=== PATIENT | female | born 1950 | race Caucasian/White ===

== ENCOUNTER 2019-11-17 08:23 | Outpatient (CLI) | payer MEDICARE, SELFPAY ==
[2019-11-17 08:38] LABS: Basophils Absolute Auto 0.11 K/mm3 (0.00-0.10); Basophils Percent Auto 1.8 % (0.0-1.0); Eosinophils Absolute Auto 0.55 K/mm3 (0.02-0.50); Eosinophils Percent Auto 9.1 % (1.0-6.0); Hematocrit 41.1 % (35.0-42.0); Hemoglobin 13.5 g/dL (11.7-13.8); Immature Granulocyte Absolute 0.01 K/mm3 (0.00-0.00); Immature Granulocyte Percent A 0.2 % (0.0-0.0); Immature Platelet Fraction Pct 6.8 % (1.0-7.0); Lymphocytes Absolute Auto 1.85 K/mm3 (1.10-4.50); Lymphocytes Percent Auto 30.6 % (18.0-42.0); Mean Corpuscular HGB Conc 32.8 g/dL (32.0-36.0); Mean Corpuscular Hemoglobin 30.3 pg (27.0-31.0); Mean Corpuscular Volume 92.2 fL (78.0-102.0); Mean Platelet Volume 11.8 fl (9.2-11.8); Monocytes Absolute Auto 0.55 K/mm3 (0.10-0.90); Monocytes Percent Auto 9.1 % (2.0-11.0); Neutrophils Percent Auto 49.2 % (50.0-70.0); Platelet Count Result 134 K/mm3 (150-420); Red Blood Count 4.46 M/mm3 (4.20-5.40); Red Cell Distribution Width 12.6 % (11.6-14.4)
[2019-11-17 08:39] LABS: Add Urine Microscopic? YES; Appearance Urine Clear (Clear); Bilirubin Urine Negative (Negative); Blood Urine 2+ (Negative); Color Urine Yellow (Yellow); Glucose Urine UA Negative (Negative); Ketones Urine Negative (Negative); Leukocyte Esterase Ur Negative LEU/UL (Negative); Nitrate Urine Negative (Negative); Protein Urine Negative (Negative); Specific Grav Ur 1.025 (1.010-1.020); Urobilinogen Urine 0.2 mg/dL (0.2-1.0)
[2019-11-17 08:58] LABS: Bacteria Urine 1+ /hpf; Squamous Epithelial Cell Urine Few /hpf (Few); WBC Urine 0-3 /hpf (0-3)
[2019-11-17 08:59] LABS: Mucus Urine Moderate /lpf
[2019-11-17 09:41] LABS: Alanine Aminotransferase 35 U/L (14-59); Albumin Level 3.6 g/dL (3.4-5.0); Alkaline Phosphatase 94 U/L (46-116); Anion Gap 13.3 mmol/L (7-16); Aspartate Amino Transferase 28 U/L (15-37); Bilirubin,Total 0.5 mg/dL (0.00-1.00); Blood Urea Nitrogen 18 mg/dL (7-18); Carbon Dioxide 27 mmol/L (21-32); Chloride 109 mmol/L (98-108); Cholesterol 125 mg/dL (0-200); Creatine Kinase 90 U/L (26-192); Estimated Glomerular Filt Rate > 60; Free T4 Free Thyroxine 1.12 ng/dL (0.76-1.46); Glucose 92 mg/dL (70-99); HDL Direct 56 mg/dL (40-60); LDL Cholesterol Calculated 58 mg/dL (<130); Osmolality Calculated 301 mOsm/kg (285-295); Potassium 4.3 mmol/L (3.5-5.1); Sodium 145 mmol/L (136-145); Thyroid Stimulating Hormone 1.72 uIU/mL (0.36-3.74); Total Protein 6.6 g/dL (6.4-8.2); Triglycerides 57 mg/dL (0-150)
[2019-11-21 10:27] LABS: Vitamin D 25 Hydroxy 17 ng/mL (30-100)
== END 2019-11-17 08:24 | disposition home or self-care (01) ==
PROVIDERS: PCP Internal Medicine; Visit Provider Internal Medicine
DX: D69.6 Thrombocytopenia, unspecified (principal); E03.9 Hypothyroidism, unspecified; M81.0 Age-related osteoporosis without current pathological fracture; E78.5 Hyperlipidemia, unspecified; Z00.00 Encounter for general adult medical examination without abnormal findings
CPT/HCPCS: 36415; 80053; 80061; 81001; 82306; 82550; 84439; 84443; 85025; 85055

== ENCOUNTER 2020-11-17 07:51 | Outpatient (CLI) | payer MEDICARE, SELFPAY ==
--- NOTE | ~2020-11-17 | US_ITS ---
EXAMINATION: US right upper quadrant DATE: 11/17/2020 08:27 INDICATION: Nausea. Diarrhea. TECHNIQUE: Multiple grayscale and Doppler ultrasound images of the abdomen were obtained. COMPARISON: None FINDINGS: The visualized portions of the head, body, and tail of the pancreas are normal. There are c ysts in the liver measuring up to 14 mm. No liver surface nodularity. There is normal flow in main po rtal vein. The gallbladder is absent. The common duct is dilated to 12 mm. IMPRESSION: 1. Mildly dilated common duct status post cholecystectomy, likely not clinically significant given th e normal liver function tests. Reviewed, dictated and finalized at location B. IMPRESSION: 1. Mildly dilated common duct status post cholecystectomy, likely not clinicall y significant given the normal liver function tests.
--- NOTE | ~2020-11-17 | US_ITS ---
EXAMINATION: US carotid duplex BI DATE: 11/17/2020 08:27 INDICATION: Carotid stenosis. TECHNIQUE: Grayscale, color Doppler, and pulsed Doppler images of the cervical carotid arteries were obtained. The degree of vessel stenosis is placed in one of the following categories: normal, <50%, 5 0-69%, >=70% but less than near-occlusion, near-occlusion, or total occlusion. Note that percent sten osis relative to normal distal artery lumen diameter is indirectly measured from velocity measurement s as described by Fabio, et al. Radiology 2003; 229:340-346. COMPARISON: Ultrasound 01/04/2009 FINDINGS: RIGHT: The right common carotid artery (CCA) peak systolic velocity (PSV) is 121 cm/s. The right internal ca rotid artery (ICA) PSV is 92 cm/s. The right ICA end-diastolic velocity (EDV) is 19 cm/s. The right I CA/CCA PSV ratio is 0.8. Grayscale and color Doppler images yield an estimate of <50% diameter reduct ion from plaque in the ICA. There is antegrade flow in the right vertebral artery. LEFT: The left CCA PSV is 134 cm/s. The left ICA PSV is 104 cm/s. The left ICA EDV is 29 cm/s. The left ICA /CCA PSV ratio is 0.8. Grayscale and color Doppler images yield an estimate of <50% diameter reductio n from plaque in the ICA. There is antegrade flow in the left vertebral artery. IMPRESSION: 1. <50% stenosis in the right internal carotid artery. 2. <50% stenosis in the left internal carotid artery. Reviewed, dictated and finalized at location B.
== END 2020-11-17 07:52 | disposition home or self-care (01) ==
LOC: CHSIMG 07:52
PROVIDERS: PCP Internal Medicine; Visit Provider Internal Medicine
DX: R11.0 Nausea (principal); R19.7 Diarrhea, unspecified; Z90.49 Acquired absence of other specified parts of digestive tract; I65.29 Occlusion and stenosis of unspecified carotid artery
CPT/HCPCS: 76705; 93880

== ENCOUNTER 2021-01-31 01:19 | Day surgery (SDC) | payer MEDICARE, SELFPAY ==
[2021-01-19 11:40] VITALS: BMI 29.5
[2021-01-31 06:38] VITALS: BP 143/64; PULSE 64; RESP 18; TEMP 36.2; O2SAT 100; BMI 29.7
[2021-01-31] MEDS: LACTATED RINGERS 1,000 ML 150 ML IV CONT (07:05)
--- NOTE | 2021-01-31 07:43 | WPDANESEPPF ---
Anes - Initial Pre Proc Eval Procedure: Operation Date: 01/31/21 08:15 Proposed Procedures p Esophagogastroduodenoscopy & Colonoscopy - Daniel Horne MD Date/Time: 01/31/21 07:43 Surgeon: Daniel Horne MD Pre Op Diagnosis: diarrhea, fecal incontinence, rt upper quad pain Patient Data Age: 70 Gender: F Height: 1.6 m Weight: 76.1 kg Last Vital Signs Temp 36.2 C L 01/31/21 06:38 Pulse 64 01/31/21 06:38 Resp 18 01/31/21 06:38 BP 143/64 H 01/31/21 06:38 Pulse Ox 100 01/31/21 06:38 Allergies Allergy/AdvReac Type Severity Reaction Status Date / Time No Known Allergies Allergy Verified 01/31/21 06:52 Home Medications Medication Instructions Recorded Confirmed Type acetaminophen 500 mg PO Q6H PRN 01/19/21 01/19/21 History amlodipine 10 mg PO DAILY 01/19/21 01/19/21 History aspirin 81 mg PO DAILY 01/19/21 01/19/21 History atorvastatin 80 mg PO DAILY 01/19/21 01/19/21 History ergocalciferol (vitamin D2) See Rx Instructions .ROUTE .COMPLEX 01/19/21 01/19/21 History levothyroxine 75 mcg PO DAILY 01/19/21 01/19/21 History metoprolol succinate 25 mg PO DAILY 01/19/21 01/19/21 History omega-3 fatty acids [Fish Oil] 1,000 mg PO DAILY 01/19/21 01/19/21 History pseudoephedrine HCl [Sudafed] 60 mg PO Q4-6H PRN 01/19/21 01/19/21 History triamcinolone acetonide [Nasacort] 1 spray INTRANASAL DAILY 01/19/21 01/19/21 History vitamin B complex [B tablet 01/19/21 History Complex-Vitamin B12] Patient hx anesthesia problems: none Family hx anesthesia problems: none PMFSH Past Medical History Medical History (Updated 01/31/21 @ 07:46 by Rios Wright MD) Bowel incontinence CAD (coronary artery disease) Colon cancer screening RUQ pain Surgical History Surgical History (Updated 01/31/21 @ 07:46 by Rios Wright MD) History of cholecystectomy Hx of CABG Family History Family History Mother Family history of type 2 diabetes mellitus Social History Social History Smoking status: Former smoker Tobacco type: cigarettes Alcohol intake: current Alcohol use details: SELDOM Substance use: never Substance use type: does not use Living arrangements: alone Spiritual care concerns: No Anes - Eval Final PreProcedure Day of Procedure 01/31/21 07:43 Patient weight: overweight Heart: regular rate and rhythm Lungs: clear to auscultation Airway: Mallampati scale class II Neurological: alert and oriented Last oral intake: >/= 8 hours ASA classification: III Emergent: no Anesthetic plan: proceed Anesthesia type and monitoring: general GIVS and standard monitoring Informed Consent: The patient's anesthetic plan and its attendant risks and benefits were discussed with the patient/family/POA. Questions were solicited and answers provided to the satisfaction of the patient/family/POA.
--- NOTE | 2021-01-31 07:48 | PM.HPGS ---
History of Present Illness History of Present Illness Consent: Risks, benefits, and alternatives have been discussed and questions answered. Patient agrees to proceed with procedure. Chief complaint: diarrhea, fecal incontinence, rt upper quad pain Narrative: Francie Khan is a 70 year old female with intermittent ruq, s/p blossom, work up negative. Also incontinence with last colonoscopy 9 years ago. Review of Systems Constitutional: Constitutional: Denies headache(s) and Denies weakness Eyes: Eyes: Denies blurry vision ENT: Reports Normal hearing present, Denies headache(s) and Denies neck pain Cardiovascular: Cardiovascular: Denies chest pain and Denies dyspnea Respiratory: Respiratory: Denies dyspnea Gastrointestinal: Gastrointestinal: Reports no additional gastrointestinal complaints Genitourinary: Genitourinary: Denies dysuria Musculoskeletal: Musculoskeletal: Denies neck pain Integumentary/Breasts: Skin/Breast: Denies dry skin Neurologic: Reports Normal hearing present, Denies headache(s) and Denies weakness Psychiatric: Psychiatric: Denies anxiety Endocrine: Endocrine: Denies change in body appearance Hematologic/Lymphatic: Hematologic/Lymphatic: Denies easy bleeding Allergic/Immunologic: Allergic/Immunologic: Denies urticaria PMFSH Past Medical History Medical History (Updated 01/31/21 @ 07:46 by Rios Wright MD) Bowel incontinence CAD (coronary artery disease) Colon cancer screening RUQ pain Surgical History Surgical History (Updated 01/31/21 @ 07:46 by Rios Wright MD) History of cholecystectomy Hx of CABG Family History Family History Mother Family history of type 2 diabetes mellitus Social History Social History Smoking status: Former smoker Tobacco type: cigarettes Alcohol intake: current Alcohol use details: SELDOM Substance use: never Substance use type: does not use Living arrangements: alone Spiritual care concerns: No Meds Home Medications and Allergies Home Medications Medication Instructions Recorded Confirmed Type acetaminophen 500 mg PO Q6H PRN 01/19/21 01/19/21 History amlodipine 10 mg PO DAILY 01/19/21 01/19/21 History aspirin 81 mg PO DAILY 01/19/21 01/19/21 History atorvastatin 80 mg PO DAILY 01/19/21 01/19/21 History ergocalciferol (vitamin D2) See Rx Instructions .ROUTE .COMPLEX 01/19/21 01/19/21 History levothyroxine 75 mcg PO DAILY 01/19/21 01/19/21 History metoprolol succinate 25 mg PO DAILY 01/19/21 01/19/21 History omega-3 fatty acids [Fish Oil] 1,000 mg PO DAILY 01/19/21 01/19/21 History pseudoephedrine HCl [Sudafed] 60 mg PO Q4-6H PRN 01/19/21 01/19/21 History triamcinolone acetonide [Nasacort] 1 spray INTRANASAL DAILY 01/19/21 01/19/21 History vitamin B complex [B tablet 01/19/21 History Complex-Vitamin B12] Allergies Allergy/AdvReac Type Severity Reaction Status Date / Time No Known Allergies Allergy Verified 01/31/21 06:52 Vital Signs Vital Signs - 24 hr 01/31/21 06:38 Temperature 97.2 F L Pulse Rate 64 Respiratory Rate 18 Blood Pressure 143/64 H Pulse Oximetry 100 Exam Const: General: comfortable and no acute distress HENMT: General nose exam: Normal nares present Eyes: General: appearance normal, both eyes and all related structures Neck: Neck: no JVD Resp: Auscultation: clear to auscultation bilaterally Cardio: Rate: regular rate Rhythm: regular rhythm GI: Inspection: non-distended GI Palp: Yes Soft to palpation Skin: General skin exam: normal color Neuro: General: gait normal Speech: normal speech Extrem: General: normal to inspection Psych: Mental Status: mental status grossly normal Assessment and Plan Assessment and plan (1) Bowel incontinence: Code(s): R15.9 - Full incontinence of feces Status: Acute Assessment and Plan: co
[2021-01-31 08:25] VITALS: BP 101/53; PULSE 55; RESP 22; O2SAT 100
[2021-01-31 08:35] VITALS: BP 100/53; PULSE 53; RESP 19; O2SAT 100
[2021-01-31 08:45] VITALS: BP 147/75; PULSE 49; RESP 17; O2SAT 100
== END 2021-01-31 09:05 | disposition home or self-care (01) ==
PROVIDERS: PCP Internal Medicine; Visit Provider Internal Medicine Gastroenterology
PROC: 0DJ08ZZ Inspection of Upper Intestinal Tract, Via Natural or Artificial Opening Endoscopic (ICD-10-PCS; CPT 43235; principal; 2021-01-31 08:15)
DX: R15.9 Full incontinence of feces (principal); D12.0 Benign neoplasm of cecum; K57.30 Diverticulosis of large intestine without perforation or abscess without bleeding; K64.8 Other hemorrhoids; K21.00 Gastro-esophageal reflux disease with esophagitis, without bleeding; I25.10 Atherosclerotic heart disease of native coronary artery without angina pectoris; Z79.82 Long term (current) use of aspirin; Z87.891 Personal history of nicotine dependence
CPT/HCPCS: 45385; 45380; 43239; 88305; J2704; J7120

== ENCOUNTER 2022-12-14 09:32 | Outpatient (CLI) | payer MEDICARE, SELFPAY ==
[2022-12-14 10:37] LABS: SARS-CoV-2 RNA PCR Negative (Negative)
== END 2022-12-14 09:33 | disposition home or self-care (01) ==
LOC: CHSLAB 09:36
PROVIDERS: PCP Internal Medicine; Visit Provider Nurse Practitioner Family
DX: Z20.822 Contact with and (suspected) exposure to COVID-19 (principal)
CPT/HCPCS: 87635

== ENCOUNTER 2023-01-22 08:26 | Outpatient (CLI) | payer MEDICARE, SELFPAY ==
--- NOTE | ~2023-01-22 | US_ITS ---
EXAMINATION: US carotid duplex BI DATE: 01/22/2023 08:53 INDICATION: Carotid stenosis. TECHNIQUE: Grayscale, color Doppler, and pulsed Doppler images of the cervical carotid arteries were obtained. The degree of vessel stenosis is placed in one of the following categories: normal, <50%, 5 0-69%, >=70% but less than near-occlusion, near-occlusion, or total occlusion. Note that percent sten osis relative to normal distal artery lumen diameter is indirectly measured from velocity measurement s as described by Fabio, et al. Radiology 2003; 229:[id number]. COMPARISON: Ultrasound 11/17/2020 FINDINGS: RIGHT: The right common carotid artery (CCA) peak systolic velocity (PSV) is 69 cm/s. The right internal car otid artery (ICA) PSV is 80 cm/s. The right ICA end-diastolic velocity (EDV) is 23 cm/s. The right IC A/CCA PSV ratio is 1.2. Grayscale and color Doppler images yield an estimate of <50% diameter reducti on from plaque in the ICA. There is antegrade flow in the right vertebral artery. LEFT: The left CCA PSV is 97 cm/s. The left ICA PSV is 85 cm/s. The left ICA EDV is 30 cm/s. The left ICA/C CA PSV ratio is 0.9. Grayscale and color Doppler images yield an estimate of <50% diameter reduction from plaque in the ICA. There is antegrade flow in the left vertebral artery. IMPRESSION: 1. <50% stenosis in the right internal carotid artery. 2. <50% stenosis in the left internal carotid artery. Reviewed, dictated and finalized at location A.
== END 2023-01-22 08:27 | disposition home or self-care (01) ==
LOC: CHSIMG 08:28
PROVIDERS: PCP Internal Medicine; Visit Provider Internal Medicine
DX: I65.23 Occlusion and stenosis of bilateral carotid arteries (principal)
CPT/HCPCS: 93880

== ENCOUNTER 2023-11-26 07:51 | Outpatient (CLI) | payer MEDICARE, SELFPAY ==
--- NOTE | ~2023-11-26 | DEXA_ITS ---
? Bone Density Report? Name:? SOURAV SANTOYO Patient ID:??? [id number] Age:? 73 Sex:? Female Ethnicity:? White Date of : 1950 Indication: postmenopausal; screening for osteoporosis; height loss; inflammatory bowel disease; Referring Provider: Jorge Saucedo Study: Bone densitometry was performed. Exam Date: November 26, 2023 Accession number: [id number] Bone Density: Region? BMD??? T-score? Z-score?? Classification AP Spine(L1, L2, L3)? 1.066??? 0.4?2.7? Normal Femoral Neck (Left)? 0.718?? -1.2? 0.8? Osteopenia Total Hip (Left)? 0.940??? 0.0? 1.7? Normal Femoral Neck (Right)? 0.703?? -1.3? 0.7? Osteopenia Total Hip (Right)? 0.945??? 0.0? 1.7? Normal Femoral Neck Mean? 0.711?? -1.2? 0.7? Osteopenia Total Hip Mean? 0.943??? 0.0?1.7? Normal World Health Organization criteria for BMD impression classify patients as: Normal (T-score at or above -1.0), Osteopenia (T-score between -1.0 and -2.5), or Osteoporosis (T-score at or below -2.5). 10-year Fracture Risk(1): Major Osteoporotic Fracture? 10% Hip Fracture? 1.7% Reported Risk Factors: [place] (), Neck BMD=0.703, BMI=25.5 (1) FRAX? Version 3.08. Fracture probability calculated for an untreated patient. Fracture probability may be lower if the patient has received treatment. Clinical Information Provided by Patient: Has used the following medications: Vitamin D Has the following medical conditions: Inflammatory bowel diseases Patient maximum height was 65 Menopause Age: 48 No regular weight bearing exercise Does not regularly consume dairy products Drinks caffeinated beverages Onset of menses at age 11 Number of children 0 Impression: The patient has low bone mass, based on the Right Femoral Neck T- score. Discussion: BONE DENSITY IS LOW AT ONE OR MORE SKELETAL SITES. This patient's lowest T-score is low at one or more skeletal sites.? It meets the World Health Organization's (WHO) criteria for ?low bone mass?? (T-score between -1.0 and -2.5).? The patient's 10-year risk of fracture as calculated by FRAX is less than the threshold where pharmacological therapy is recommended by the National Osteoporosis Foundation (NOF).? However, all treatment decisions require clinical judgment and consideration of individual patient factors, including patient preferences, comorbidities, previous drug use, risk factors not captured in the FRAX model (e.g., frailty, falls, vitamin D deficiency, increased bone turnover, interval significant decline in bone density) and possible under or overestimation of fracture risk by FRAX. The patient should follow a he
== END 2023-11-26 07:52 | disposition home or self-care (01) ==
LOC: CHSIMG 07:52
PROVIDERS: PCP Internal Medicine; Visit Provider Internal Medicine
DX: Z78.0 Asymptomatic menopausal state (principal); M85.89 Other specified disorders of bone density and structure, multiple sites
CPT/HCPCS: 77080

== ENCOUNTER 2024-03-19 08:03 | Outpatient (CLI) | payer MEDICARE, SELFPAY ==
[2024-03-19 08:52] LABS: Cholesterol 136 mg/dL (0-200); HDL Direct 72 mg/dL (40-60); LDL Cholesterol Calculated 53 mg/dL (<130); Triglycerides 56 mg/dL (0-150)
== END 2024-03-19 08:04 | disposition home or self-care (01) ==
LOC: CHSLAB 08:07
PROVIDERS: PCP Internal Medicine
DX: E78.00 Pure hypercholesterolemia, unspecified (principal)
CPT/HCPCS: 36415; 80061